=== PATIENT | female | born 1980 | race Caucasian/White ===

== ENCOUNTER 2016-10-27 18:26 | Emergency (ER) | payer BC ==
[2016-10-27] MEDS ORDERED: HYDROcodone/Acetaminophen 10/325 mg Tablet ONE (19:33)
[2016-10-27] MEDS ORDERED: Ibuprofen 200 MG TAB ONE (19:34)
[2016-10-27] MEDS ORDERED: Acetaminophen 325 MG TAB ONE (19:34)
[2016-10-27] MEDS ORDERED: Cephalexin 500 MG CAP ONE ×2 (19:34→19:40)
== END 2016-10-27 19:55 | disposition home or self-care (01) ==
LOC: NAV ERS 18:26
DX: K04.7 Periapical abscess without sinus (principal); F17.210 Nicotine dependence, cigarettes, uncomplicated
CPT/HCPCS: 99282